=== PATIENT | male | born 1945 | race Caucasian/White ===

== ENCOUNTER 2018-12-21 10:44 | Outpatient (CLI) | payer OTHER ==
[~2018-12-21] VITALS: Ht 167.6 cm; Wt 89.4 kg
[2018-12-21] MEDS ORDERED: albuterol 2.5 MG/3 ML nebule NEB PRN (11:25)
== END 2018-12-21 23:59 | disposition home or self-care (01) ==
LOC: RT 10:44
PROVIDERS: ATTEND Orthopaedic Surgery
DX: J98.4 Other disorders of lung (principal); C34.90 Malignant neoplasm of unspecified part of unspecified bronchus or lung; Z87.891 Personal history of nicotine dependence; Z79.899 Other long term (current) drug therapy
CPT/HCPCS: 94060; 94760

== ENCOUNTER 2019-04-05 08:34 | Outpatient (CLI) | payer OTHER | END 2019-04-05 23:59 | disposition home or self-care (01) | LOC: RT 08:34 | PROVIDERS: ATTEND Orthopaedic Surgery | DX: J44.9 Chronic obstructive pulmonary disease, unspecified (principal) | CPT/HCPCS: 94010; 94729 ==